=== PATIENT | male | born 2000 | race Caucasian/White ===

== ENCOUNTER 2021-02-05 08:56 | Emergency (ER) | payer SELFPAY ==
--- NOTE | ~2021-02-05 | XR_ITS ---
[id number] DATE: 02/05/2021 09:38 INDICATION: Right anterior rib pain for 3 weeks TECHNIQUE: PA chest. 3 views of the right ribs. COMPARISON: None FINDINGS: Normal heart size. No hilar or mediastinal enlargement. Lungs are clear of infiltrate or co nsolidation. No pleural effusion or pulmonary vascular congestion or pneumothorax. The right rib fracture is evident. IMPRESSION: Negative Reviewed, dictated and finalized at [facility] Reviewed, dictated and finalized at [facility]. IMPRESSION: Negative
[2021-02-05 09:04] VITALS: BP 108/61; PULSE 84; RESP 16; TEMP 37.7; O2SAT 100
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
== END 2021-02-05 10:15 | disposition home or self-care (01) ==
PROVIDERS: Emergency Provider Registered Nurse
DX: R07.81 Pleurodynia (principal); R11.2 Nausea with vomiting, unspecified
CPT/HCPCS: 71101; 99213; G0463